=== PATIENT | female | born 1965 | race Caucasian/White ===

== ENCOUNTER 2017-01-27 14:42 | Emergency (ER) | payer BC ==
[~2017-01-27] VITALS: Ht 170.2 cm; Wt 83.0 kg
[2017-01-27 14:44] VITALS: BP 128/73; PULSE 74; RESP 16; TEMP 99.1; O2SAT 98
[2017-01-27] MEDS ORDERED: LISI-515 PO (14:54)
[2017-01-27] MEDS ORDERED: NEXI40CA PO (14:54)
[2017-01-27] MEDS ORDERED: IBUPROFEN 600 MG TAB PO ONE (15:15)
--- NOTE | 2017-01-27 15:43 | RADRPT ---
EXAM DATE/TIME: 01/27/2017 15:18 [facility] COMPARISON: No previous studies available for comparison. INDICATIONS : Tripped and fell this morning. MEDICAL HISTORY : None. SURGICAL HISTORY : None. ENCOUNTER: Initial ACUITY: 1 day PAIN SCORE: 2/10 LOCATION: Right Ankle FINDINGS: Three view exam was performed of the right ankle. The bony structures are in normal alignment. No e vidence of fracture, dislocation. There is some soft tissue swelling around the ankle. There is some mild primary degenerative changes. The ankle mortise is intact. No radiopaque foreign bodies are se en. Bony mineralization is normal. CONCLUSION: 1. Soft tissue swelling. 2. No acute fracture or joint dislocation. 3. Mild primary degenerative changes. Liam Anderson MD on January 27, 2017 at 15:41 Board Certified Radiologist. This report was verified electronically.
--- NOTE | 2017-01-27 15:44 | RADRPT ---
EXAM DATE/TIME: 01/27/2017 15:18 [facility] COMPARISON: No previous studies available for comparison. INDICATIONS : Tripped and fell this morning. MEDICAL HISTORY : None. SURGICAL HISTORY : None. ENCOUNTER: Initial ACUITY: 1 day PAIN SCORE: 2/10 LOCATION: Right TIB/fib FINDINGS: Two view examination of the right tibia demonstrates no evidence of fracture or dislocation. Bony mi neralization is normal. The soft tissue structures are intact. CONCLUSION: Normal examination for a patient of this age. Liam Anderson MD on January 27, 2017 at 15:42 Board Certified Radiologist. This report was verified electronically.
--- NOTE | 2017-01-27 15:44 | RADRPT ---
EXAM DATE/TIME: 01/27/2017 15:18 [facility] COMPARISON: No previous studies available for comparison. INDICATIONS : Tripped and fell this morning. MEDICAL HISTORY : None. SURGICAL HISTORY : None. ENCOUNTER: Initial ACUITY: 1 day PAIN SCORE: 2/10 LOCATION: Right Knee. FINDINGS: Four view examination of the right knee demonstrates no evidence of fracture or dislocation. Bony mi neralization is normal. The articular surfaces are intact. The suprapatellar soft tissues have a no rmal configuration. CONCLUSION: Normal examination for a patient of this age. Liam Anderson MD on January 27, 2017 at 15:42 Board Certified Radiologist. This report was verified electronically.
--- NOTE | 2017-01-27 15:56 | PD ---
HPI . Right ankle and foot pain and swelling. Chief Complaint: Injury Time Seen by Provider: 15:00 Travel History International Travel<30 days: No Contact w/Intl Traveler<30days: No Traveled to known affect area: No History of Present Illness HPI 51-year-old female presents to emergency department for evaluation of right ankle pain and swelling. Patient states she went to stand up at her home earlier and twisted her ankle in an awkward position and has had pain subsequently. Patient states it is so painful she is unable to bear weight. Patient's elderly mother lives with her and she was able to use her cane to get to the car to come to the emergency department. Patient had ankle surgery to shave down a bone spur a couple years ago. Patient was unsure if that was related to this incident. The right leg is neurovascularly intact. Patient denies paresthesias. The right ankle is edematous and mildly ecchymotic. There is no erythema or obvious deformity. Patient states her right knee has been aching since the twisting of her ankle as well. Patient reports mild pain with palpation to the upper calf area of the right leg. Patient denies any major medical history outside hypertension. Patient does not take blood thinners. Patient denies any other injuries during this event. PFSH Past Medical History Diminished Hearing: No GERD: Yes Hypertension: Yes Immunizations Current: No Tetanus Vaccination: Unknown Influenza Vaccination: No ?: Not LMP: MENOPAUSAL Past Surgical History Section: Yes Tonsillectomy: Yes Social History Alcohol Use: No Tobacco Use: No Substance Use: No Allergies-Medications (Allergen,Severity, Reaction): Coded Allergies: erythromycin base (Verified Allergy, Intermediate, RASH, 01/27/17) Reported Meds & Prescriptions Reported Meds & Active Scripts Active Reported Nexium (Esomeprazole DR) 40 Mg Capdr 40 Mg PO DAILY Lisinopril 20 Mg Tab 20 Mg PO DAILY Review of Systems Except as stated in HPI: all other systems reviewed are Neg Physical Exam Narrative GENERAL: Well-nourished, well-developed, pleasant 51-year-old female patient in no acute respiratory distress. Nontoxic appearing. SKIN: Focused skin assessment warm/dry. HEAD: Normocephalic. Atraumatic. EYES: No scleral icterus. No injection or drainage. NECK: Supple, trachea midline. No JVD or lymphadenopathy. CARDIOVASCULAR: Regular rate and rhythm without murmurs, gallops, or rubs. RESPIRATORY: Breath sounds equal bilaterally. No accessory muscle use. GASTROINTESTINAL: Abdomen soft, non-tender, nondistended. MUSCULOSKELETAL: Right ankle edematous and mildly ecchymotic, no cyanosis or erythema. Right knee tenderness to palpation. Full range of motion with flexion and extension in the right knee. Mild pain with palpation to the proximal calf region of the right lower extremity. BACK: Nontender without obvious deformity. No CVA tenderness. Data Data Last Documented VS Vital Signs Date Time Temp Pulse Resp B/P (MAP) Pulse Ox O2 Delivery O2 Flow Rate FiO2 01/27/17 14:44 99.1 74 16 128/73 (91) 98 Orders Orders Ankle, Complete (Clc2vth) (01/27/17 15:05) Tibia/Fibula (Ap/Lat) (01/27/17 15:05) Ice/Cold Pack (01/27/17 15:05) Knee, Complete (4vws) (01/27/17 15:06) Ibuprofen (Motrin) (01/27/17 15:15) MDM Medical Decision Making Medical Screen Exam Complete: Yes Emergency Medical Condition: Yes Differential Diagnosis Differential diagnoses include but not limited to right ankle sprain, right leg fracture, right knee sprain, ligament injury, tendon injury Narrative Course 51-year-old female presents emergency department for evaluation of right foot, knee and ankle pain after twisting her ankle in a position earlier today. X- ray of the right foot, tibia-fibula and ankle ordered and pending. Ice applied to the right ankle and knee. Ibuprofen ordered for pain and swelling. Ankle x- ray shows soft tissue swelling but is otherwise unremarkable. Knee and tibia- fibula x-ray are unremarkable. Based on patient's symptoms, clinical presentation, radiological results, vital sign review and physical exam it is not necessary to admit the patient to the hospital or keep the patient in the emergency department for further evaluation. Right ankle will be Jignesh wrapped and patient will be discharged home with instructions to follow-up with primary care. Last Impressions Knee X-Ray 01/27/17 1506 Signed Impressions: Service Date/Time: January 15:18 - CONCLUSION: Normal examination for a patient of this age. Liam Anderson MD Tibia/Fibula X-Ray 01/27/17 1505 Signed Impressions: Service Date/Time: January 15:18 - CONCLUSION: Normal examination for a patient of this age. Liam Anderson MD Ankle X-Ray 01/27/17 1505 Signed Impressions: Service Date/Time: January 15:18 - CONCLUSION: 1. Soft tissue swelling. 2. No acute fracture or joint dislocation. 3. Mild primary degenerative changes. Liam Anderson MD Diagnosis Primary Impression: Ankle sprain Qualified Codes: S93.401A - Sprain of unspecified ligament of right ankle, initial encounter Referrals: Primary Care Physician Patient Instructions: Ankle Sprain (GEN), General Instructions Additional Instructions: Please return to emergency department if your symptoms return or worsen. Follow up with your primary care provider. Use rice therapy for right ankle. Rest, ice, compress with Jignesh wrap and elevate the right ankle and resting. May use [id number] Motrin as a for pain or swelling. Disposition: 01 DISCHARGE HOME Condition: Stable Ashtyn MirandaP Jan 27, 2017 15:56
== END 2017-01-27 16:34 | disposition home or self-care (01) ==
LOC: PHEFT 14:42
DX: S93.401A Sprain of unspecified ligament of right ankle, initial encounter (principal); X50.1XXA Overexertion from prolonged static or awkward postures, initial encounter; Y93.89 Activity, other specified; Y92.009 Unspecified place in unspecified non-institutional (private) residence as the place of occurrence of the external cause
CPT/HCPCS: 73564; 73590; 73610; 99283